=== PATIENT | male | born 1980 | race Caucasian/White ===

== ENCOUNTER 2020-01-01 02:01 | Emergency (ER) | payer OTHER ==
[~2020-01-01] VITALS: Ht 180.3 cm; Wt 72.6 kg
[2020-01-01 02:50] LABS: CALCIUM 8.9 mg/dL (8.5-10.1); CARBON DIOXIDE 23.8 mmol/L (21-32); CHLORIDE SERUM 103 mmol/L (98-107); CREATININE SERUM 1.1 mg/dL (0.7-1.3); GFR1 > 60 mL/min; GLUCOSE SERUM 78 mg/dL (74-106); POTASSIUM SERUM 3.5 mmol/L (3.5-5.1); SODIUM SERUM 142 mmol/L (136-145)
[2020-01-01 02:51] LABS: BASOPHIL % 1.3 % (0-2)
[2020-01-01 02:53] LABS: UA SPECIFIC GRAVITY 1.025 (1.005-1.035); microscopic required? YES; urine erythrocyte TRACE (NEGATIVE)
[2020-01-01 02:54] LABS: ALBUMIN 3.5 g/dL (3.4-5.0); ALKALINE PHOSPHATASE 120 U/L (46-116); ALT/SGPT 22 U/L (16-63); AST/SGOT 32 U/L (15-37); BILIRUBIN TOTAL 0.11 mg/dL (0.20-1.00); TOTAL PROTEIN, SERUM 7.4 g/dL (6.4-8.2)
[2020-01-01 03:01] LABS: AMPHETAMINE QUAL UR POSITIVE (See below)
[2020-01-01 03:11] LABS: PLATELET COUNT 568 x10^3mcL (130-400)
[2020-01-01 06:53] VITALS: BP 131/89
== END 2020-01-01 06:53 | disposition home or self-care (01) ==
LOC: ED 02:01
PROVIDERS: Emergency Medicine
DX: F19.10 Other psychoactive substance abuse, uncomplicated (principal)
CPT/HCPCS: G0480; J7030

== ENCOUNTER 2020-03-14 20:34 | Emergency (ER) | payer OTHER ==
[~2020-03-14] VITALS: Ht 182.9 cm; Wt 66.7 kg
[2020-03-14 20:43] VITALS: Ht 182.9 cm; Wt 66.7 kg
[2020-03-15 00:17] LABS: UA SPECIFIC GRAVITY >=1.030 (1.005-1.035); microscopic required? YES; urine erythrocyte TRACE (NEGATIVE)
[2020-03-15 00:46] VITALS: BP 143/95
[2020-03-16 07:10] LABS: RAPID PLASMA REAGIN Non Reactive (Non Reactive)
== END 2020-03-15 00:46 | disposition home or self-care (01) ==
LOC: ED 20:34
PROVIDERS: Emergency Medicine
DX: N39.0 Urinary tract infection, site not specified (principal); A64 Unspecified sexually transmitted disease
CPT/HCPCS: 87491; 87591; J0696